=== PATIENT | male | born 1980 | race Caucasian/White ===

== ENCOUNTER 2024-01-19 11:06 | Emergency (ER) | payer OTHER, SELFPAY ==
[2024-01-19 11:08] VITALS: BP 173/98
[2024-01-19 11:46] VITALS: BP 137/85
[2024-01-19 12:00] VITALS: BP 132/82
[2024-01-19 12:04] VITALS: BMI 28.7
--- NOTE | 2024-01-19 12:10 | ED.GENMED ---
History of Present Illness
General
Chief Complaint: Abdominal Pain
Source: patient
Exam Limitations: none
Time Seen by Provider: 01/19/24 12:07
Nursing documentation reviewed up to this point in time: agreed with
Travel History
Have you had any contact with someone who has COVID-19?: No
Do you have any symptoms of coronavirus? Fever > 100 degrees, chills, cough, shortness of breath, sore throat, loss of taste or smell, muscle aches, or headache?: No
History of Present Illness
History of Present Illness:
43-year-old male here from [place] in a drug rehab program. He has been off Suboxone for 3 months. He started with diarrhea 2 months ago when he figured it was from being off the Suboxone however it has been 3 months and his diarrhea is
worsening and has developed mid to right abdominal pain. He states diarrhea is black and in particles, no formed stools. He took Imodium with less diarrhea but no change in the texture of the stool and it remains black. He denies nausea or
vomiting. He does state he feels weak. He denies shortness of breath or chest pain. He does get some abdominal pain before he has the diarrhea.
Past History
Past History
ED Past Medical History: Other (Drug addiction, is in rehab currently)
ED Past Surgical History: Orthopedic and Other (Hernia repair x 3)
Social History
Tobacco: Non-smoker
Drug: Former user
Personal: Single
Living: other (In rehab)
Employment: Not employed
Review of Systems
Review of Systems
Allergies reviewed?: Yes
All Other Systems: ROS reviewed and negative except as documented in HPI and ROS
Constitutional: Denies fever or chills
Respiratory: Denies cough or trouble breathing
Cardiac: Denies chest pain
ABD/GI: Reports abdominal pain, diarrhea, black stools and anorexia (Just does not want to eat because he will have diarrhea); Denies nausea, vomiting or bloody stools
: Reports frequency; Denies dysuria, flank pain, difficulty voiding or urgency
Musculoskeletal: Reports no symptoms
Skin: Reports no symptoms
Neurological: Reports no symptoms
Phy Exam
Physical Exam
Physical Exam:
GENERAL: No acute distress. A&Ox3.
CONSTITUTIONAL: Afebrile.
ENMT: moist mucus membranes, Pharynx nl
RESPIRATORY: Regular respirations, nonlabored, lungs clear.
CARDIOVASCULAR: Regular rate and rhythm, no murmurs, no rubs.
GI: Soft, tender mid to right abdomen, hypoactive BS
Rectal: No stool, clear mucus Hematest neg, no hemorrhoids
MUSCULOSKELETAL: Moves with ease. Well perfused.
SKIN: Warm, dry, pink
PSYCH: Normal mood and affect. Well kept, interactive and appropriate
NEUROLOGIC: Awake, alert and oriented. No focal neurological deficits
Course
Orders/Labs/Results
Orders:
Orders
01/19/24 12:22
CT Abd/Pel (IV only)-DH only Urgent
Comment:
Reason For Exam: abdominal pain, diarrhea
01/19/24 12:24
0.9% Sodium Chloride 1000 ml [Nss] 1,000 ml IV BOLUS
01/19/24 12:43
Type+Screen Urgent
Complete Blood Count/With Diff Urgent
Comprehensive Metabolic Panel Urgent
Lipase Urgent
Urinalysis Reflex To Culture Urgent
Date Specimen was Collected: 01/19/24
Time Specimen was Collected: 12:26
01/19/24 16:31
C DIFF [C difficile Antigen & Toxins] Urgent
ANGÉLICA Source: Feces/Stool
Specimen Description:
Date Specimen was Collected: 01/19/24
Time Specimen was Collected: 16:29
Ova & Parasites Giardia/Crypto AG [Giardia/Cryptosporidium Ag] Urgent
ANGÉLICA Source: Feces/Stool
Specimen Description:
Stool Culture Urgent
ANGÉLICA Source: Feces/Stool
Specimen Description:
Date Specimen was Collected: 01/19/24
Time Specimen was Collected: 16:29
Abnormal Lab Results
01/19/24
12:43
MPV 10.8 H fL
(7.4-10.4)
Lymphocytes % 19.6 L %
(20.5-51.1)
BUN 29 H mg/dl
(9-20)
Glucose 118 H mg/dl
(70-99)
AST 63 H U/L
(17-59)
ALT 114 H U/L
(0-50)
01/19/24 12:43
01/19/24 12:43
Vital Signs
Initial and Last Documented VS:
Initial Vital Signs
Temp Pulse Resp BP Pulse Ox
98.2 F 72 18 173/98 98
01/19/24 11:08 01/19/24 11:08 01/19/24 11:08 01/19/24 11:08 01/19/24 11:08
Last Documented Vital Signs
Temp Pulse Resp BP Pulse Ox
97.5 F 79 19 134/94 97
01/19/24 12:47 01/19/24 16:29 01/19/24 16:29 01/19/24 16:29 01/19/24 16:29
MDM/Problems Addressed
Differential Diagnosis Includes:
Bacterial versus viral enteritis, colitis, diverticulitis
MDM/Problems Addressed:
43-year-old male here from [place] in a drug rehab program. He has been off Suboxone for 3 months. He started with diarrhea 2 months ago when he figured it was from being off the Suboxone however it has been 3 months and his diarrhea is
worsening and has developed mid to right abdominal pain. He states diarrhea is black and in particles, no formed stools. He took Imodium with less diarrhea but no change in the texture of the stool and it remains black. He denies nausea or
vomiting. He does state he feels weak. He denies shortness of breath or chest pain. He does get some abdominal pain before he has the diarrhea.
01/19/2024 1414 PM
CBC, CMP normal
UA normal
Pt had a very dark stool, approx 2 TBS worth, pudding consistency, faintly heme positive, most likely from irritation
Did take Pepto Bismol 2-3 days ago.
Sent for culture, ova and parasites.
01/19/[address] abdomen pelvis with IV only contrast: Radiology report read: IMPRESSION:
No CT evidence for an acute inflammatory process in the abdomen or pelvis.
Case discussed with Dr. Christine who agrees with discharge, Pepto Bismol prn, GI follow up
*Critical Care Note
Total Time (30-74mins, 75-104mins- exclusive of procedures): Not Applicable
ED Attending Note
-
Portions of this chart may have been created with voice recognition software.� Occasional wrong word or��sound alike� substitutions may have occurred due to the inherent limitations of voice recognition software.
Discharge Plan
Departure
Patient Disposition: Home (Routine Discharge)
Date of Disposition: 01/19/24
Time of Disposition: 16:36
Patient with high blood pressure during this ER visit?: No
Condition: Good
Discharge Problem:
Loose stools, Dark stools
Instructions: Diarrhea, Adult ED
Prescriptions:
No Action
fluoxetine [Prozac] 40 mg Capsule
40 mg PO DAILY
trazodone 50 mg Tablet
50 mg PO HSPRN PRN (Reason: sleep)
gabapentin 400 mg Capsule
400 mg PO HS
loperamide 2 mg Tablet
2 mg PO Q4H PRN (Reason: diarrhea)
bismuth subsalicylate [Pepto-Bismol] 262 mg/15 mL Suspension
524 mg PO BIDPRN PRN (Reason: diarrhea)
Visbiome 112.5 billion cell Capsule
1 cap PO DAILY
Referrals:
Tom Mar MD [Active] - Next open appointment
NONE,* [Family Provider] -
Activity Restrictions/Additional Instructions:
As we discussed, there is nothing worrisome in your workup here today.
You may continue Pepto-Bismol.
I sent your stool for cultures, the results should be back in 2 to 3 days.
You may call me Friday between the hours of 3 and 8 PM for the stool culture results to see if they are back yet and ask for Ayanna
Return here immediately for bloody stools, abdominal pain with diarrhea fever, vomiting or feeling sicker in any way,
Call and make an appointment to see the GI doctor
Interventions
Interventions:
*Risk Screen - Suicide Last Done: 01/19/24 11:08
*General Assessment Last Done: 01/19/24 11:08
*Neglect/Abuse Screening Last Done: 01/19/24 11:08
*ED COVID-19 Vaccine History Last Done: 01/19/24 11:08
BD-Gjbyet-Sdrplutcli Assessment Last Done: 01/19/24 12:05
[2024-01-19] MEDS: NSS 1000 IV (12:41)
[2024-01-19 12:56] LABS: Urine Albumin Trace (Neg - Trace); Urine Bilirubin Negative (Negative); Urine Character Clear (Clear); Urine Color Yellow; Urine Glucose Negative (Negative); Urine Ketone Negative (Negative); Urine Leukocyte Negative (Negative); Urine Nitrite Negative (Negative); Urine Occult Blood Negative (Negative); Urine Urobilinogen Negative (Neg - 1+)
[2024-01-19 12:58] LABS: % Basophils 0.4 % (0-2); % Eosinophils 0.4 % (0-6); % Immature Granulocytes 0.4 % (0-0.5); % Lymphocytes 19.6 % (20.5-51.1); % Monocytes 8.1 % (1.7-9.3); % Neutrophils 71.1 % (42.2-75.2); Absolute Lymphocytes 1.5 10^3/uL (1.2-3.4); Absolute Monocytes 0.6 10^3/uL (0.1-0.6); Absolute Neutrophils 5.3 10^3/uL (1.4-6.5); Hematocrit 43.8 % (39.0-52.0); Hemoglobin 15.4 g/dL (13.0-18.0); Mean Corp Hgb Conc. 35.2 g/dL (33.0-37.0); Mean Corpuscular Hgb 29.1 pg (27.0-31.0); Mean Corpuscular Volume 82.6 fL (80.0-94.0); Mean Platelet Volume 10.8 fL (7.4-10.4); Nucleated Red Blood Cells % 0 % (-); Platelet Count 213 10^3/uL (130-400); Red Cell Dist. Width 12.8 % (11.5-14.5); White Blood Cell Count 7.5 10^3/uL (4.8-10.8)
[2024-01-19 13:07] LABS: ALT (SGPT) 114 U/L (0-50); AST (SGOT) 63 U/L (17-59); Albumin 4.7 g/dl (3.5-5.0); Alkaline Phosphatase 69 U/L (38-126); Blood Urea Nitrogen 29 mg/dl (9-20); Calcium 9.4 mg/dl (8.4-10.2); Carbon Dioxide 28 mmol/L (22-30); Chloride 104 mmol/L (98-107); Estimated Creatinine Clearance 105 ml/min; Glucose 118 mg/dl (70-99); Lipase 46 U/L (23-300); Potassium 4.1 mmol/L (3.5-5.1); Sodium 137 mmol/L (135-145); Total Bilirubin 0.5 mg/dl (0.2-1.3); Total Protein 7.7 g/dl (6.3-8.2); eGFR > 60.00
[2024-01-19 16:29] VITALS: BP 134/94
== END 2024-01-19 17:02 | disposition home or self-care (01) ==
LOC: EMR 11:06
PROVIDERS: Registered Nurse; EMERGENCY PHYSICIAN Emergency Medicine
DX: K92.1 Melena (principal); R19.7 Diarrhea, unspecified; R10.9 Unspecified abdominal pain; R53.1 Weakness; F19.20 Other psychoactive substance dependence, uncomplicated; Z88.1 Allergy status to other antibiotic agents
CPT/HCPCS: 99285; 96360; 74177; 80053; 81003; 83690; 85025; 86850; 86900; 86901; 87045; 87046; 87177; 87209; 87324; 87328; 87329; 87427; 87449; Q9967

== ENCOUNTER 2024-03-31 12:40 | Emergency (ER) | payer OTHER, SELFPAY ==
[2024-03-31] VITALS (7 sets, daily range): BP systolic 115–128; BP diastolic 74–84
[2024-03-31 13:04] LABS: % Basophils 0.6 % (0-2); % Eosinophils 1.1 % (0-6); % Immature Granulocytes 0.2 % (0-0.5); % Lymphocytes 23.3 % (20.5-51.1); % Monocytes 9.4 % (1.7-9.3); % Neutrophils 65.4 % (42.2-75.2); Absolute Eosinophils 0.1 10^3/uL (0-0.7); Absolute Lymphocytes 1.5 10^3/uL (1.2-3.4); Absolute Monocytes 0.6 10^3/uL (0.1-0.6); Absolute Neutrophils 4.1 10^3/uL (1.4-6.5); Hemoglobin 14.5 g/dL (13.0-18.0); Mean Corp Hgb Conc. 35.4 g/dL (33.0-37.0); Mean Corpuscular Hgb 29.5 pg (27.0-31.0); Mean Corpuscular Volume 83.3 fL (80.0-94.0); Mean Platelet Volume 10.4 fL (7.4-10.4); Nucleated Red Blood Cells % 0 % (-); Platelet Count 158 10^3/uL (130-400); Red Blood Cell Count 4.92 10^6/uL (4.70-6.10); Red Cell Dist. Width 13.7 % (11.5-14.5); White Blood Cell Count 6.3 10^3/uL (4.8-10.8)
[2024-03-31 13:29] LABS: ALT (SGPT) 162 U/L (0-50); AST (SGOT) 81 U/L (17-59); Albumin 4.6 g/dl (3.5-5.0); Alkaline Phosphatase 60 U/L (38-126); Blood Urea Nitrogen 29 mg/dl (9-20); Calcium 9.5 mg/dl (8.4-10.2); Carbon Dioxide 26 mmol/L (22-30); Chloride 105 mmol/L (98-107); Glucose 107 mg/dl (70-99); Lipase 47 U/L (23-300); Potassium 4.5 mmol/L (3.5-5.1); Sodium 139 mmol/L (135-145); Total Bilirubin 0.5 mg/dl (0.2-1.3); Total Protein 7.3 g/dl (6.3-8.2); eGFR > 60.00
[2024-03-31 13:30] LABS: Urine Albumin Negative (Neg - Trace); Urine Bilirubin Negative (Negative); Urine Character Clear (Clear); Urine Color Yellow; Urine Glucose Negative (Negative); Urine Ketone Negative (Negative); Urine Leukocyte Negative (Negative); Urine Nitrite Negative (Negative); Urine Occult Blood Negative (Negative); Urine Urobilinogen Negative (Neg - 1+); Urine pH 6.5 (5.0-9.0)
--- NOTE | 2024-03-31 15:06 | ED.GENMED ---
History of Present Illness
General
Chief Complaint: Abdominal Pain
Source: patient
Exam Limitations: none
Time Seen by Provider: 03/31/24 14:21
Nursing documentation reviewed up to this point in time: agreed with
Travel History
Have you had any contact with someone who has COVID-19?: No
Do you have any symptoms of coronavirus? Fever > 100 degrees, chills, cough, shortness of breath, sore throat, loss of taste or smell, muscle aches, or headache?: No
History of Present Illness
History of Present Illness:
44-year-old male with a distant history of opioid use who presents to the emergency room for evaluation of abdominal pain and diarrhea. Patient reports that he has been having chronic issues with diarrhea since he discontinued Suboxone 6 months
ago�he says he has had nonbloody loose stools constantly since then. He says that over the past 3 to 4 months he has began having issues with abdominal pains as well�he reports he will get stabbing pains in the upper abdomen towards the left side.
He says that the stabbing pains will usually last for few minutes at a time and he will get them a few times a week. There is no clear triggering factor noted, no relation to food. He says that he has been prescribed dicyclomine in the past for
possible irritable bowel syndrome but that this does not help consistently. He says that over the past 3 days his pain has been more constant and so he came to the emergency to be assessed. He does have an appointment scheduled with
gastroenterology for evaluation of the symptoms but it is not until the end of May this year. Aside from diarrhea and pains he has not had any nausea or vomiting. He does report he has had some poor appetite and about 15 pound weight loss in the
past 6 months unintentionally. He denies any fevers or chills. He denies any urinary symptoms. He has not had any chest pain, shortness of breath. He denies any back or flank pain. He denies any other complaints.
Past History
Past History
ED Past Medical History: Other (Drug addiction, is in rehab currently)
ED Past Surgical History: Orthopedic and Other (Hernia repair x 3)
Social History
Tobacco: Non-smoker
Drug: Former user
Personal: Single
Living: other (In rehab)
Employment: Not employed
Review of Systems
Review of Systems
All Other Systems: ROS reviewed and negative except as documented in HPI and ROS
Constitutional: Reports weight loss and fatigue; Denies fever or chills
EENT: Denies sore throat or runny nose
Respiratory: Denies cough or trouble breathing
Cardiac: Denies chest pain or palpitations
ABD/GI: Reports abdominal pain, diarrhea and anorexia; Denies nausea, vomiting or constipated
: Denies dysuria, frequency, flank pain or bleeding
Musculoskeletal: Denies edema, neck pain or back pain
Neurological: Denies dizzy or headache
Phy Exam
Physical Exam
Physical Exam:
General: Awake, alert, oriented x3; no acute distress
Head: Normocephalic, atraumatic
Eyes: Conjunctiva normal, sclera anicteric
Throat: Airway intact, handling secretions
Neck: Trachea midline, supple without meningismus
Lungs: Clear to auscultation bilaterally, no wheezing, rales, rhonchi
Heart: Regular rate and rhythm, no murmurs, gallops, or rubs
Abd: Normoactive bowel sounds; abdomen is soft, non distended, tender to palpation epigastric region and left upper quadrant, no palpable abdominal masses
Back: No CVA tenderness
Neuro: Cranial nerves grossly intact, speech fluid
Skin: no rash
Extremities: No edema in extremities, equal pulses in all extremities
Scores
Heart Failure Risk
Heart Failure Risk Score: Not Applicable
Heart Score for Chest Pain Patients
STEMI patient?: Not applicable
Withdrawal Assessment of Alcohol
Withdrawal Assessment Completed?: Not applicable
Course
Orders/Labs/Results
Orders:
Orders
03/31/24 12:52
Complete Blood Count/With Diff Urgent
Comprehensive Metabolic Panel Urgent
Lipase Urgent
Urinalysis Reflex To Culture Urgent
Date Specimen was Collected: 03/31/24
Time Specimen was Collected: 12:48
03/31/24 14:44
CT Abd/pelvis W Iv Cont Urgent
Comment:
Reason For Exam: upper abd pain, left side
Abnormal Lab Results
03/31/24
12:52
Monocytes % 9.4 H %
(1.7-9.3)
BUN 29 H mg/dl
(9-20)
Glucose 107 H mg/dl
(70-99)
AST 81 H U/L
(17-59)
ALT 162 H U/L
(0-50)
03/31/24 12:52
03/31/24 12:52
Vital Signs
Initial and Last Documented VS:
Initial Vital Signs
Temp Pulse Resp BP Pulse Ox
37.2 C 77 17 118/79 96
03/31/24 12:46 03/31/24 12:46 03/31/24 12:46 03/31/24 12:46 03/31/24 12:46
Last Documented Vital Signs
Temp Pulse Resp BP Pulse Ox
37.2 C 77 17 121/84 96
03/31/24 12:46 03/31/24 12:46 03/31/24 12:46 03/31/24 14:51 03/31/24 14:51
MDM/Problems Addressed
Differential Diagnosis Includes:
Colitis, enteritis, irritable bowel syndrome, inflammatory bowel disease, gastritis, gastric ulcer/PUD, cholelithiasis, cholecystitis, nephrolithiasis, pyelonephritis
MDM/Problems Addressed:
44-year-old male with history as above presents to the emergency room for evaluation of chronic diarrhea and abdominal pain that seems to be a bit worse over the past 3 days. Vital signs are normal here. Exam as above. Plan to place an IV check
labs including CBC and CMP, urinalysis. Will send for a CT of the abdomen pelvis. Will monitor here and reassess after the above.
*Radiology
Radiology exam reviewed: radiology read reviewed
*Pulse Oximetry
Patient hypoxic: no
*Critical Care Note
Total Time (30-74mins, 75-104mins- exclusive of procedures): Not Applicable
Data Reviewed
Review of Other/Old Records Reveals: Labs and Records
Source: patient and records
ED Attending Note
-
Portions of this chart may have been created with voice recognition software.� Occasional wrong word or��sound alike� substitutions may have occurred due to the inherent limitations of voice recognition software.
Discharge Plan
Departure
Prescriptions:
No Action
fluoxetine [Prozac] 40 mg Capsule
40 mg PO DAILY
trazodone 50 mg Tablet
50 mg PO HSPRN PRN (Reason: sleep)
gabapentin 400 mg Capsule
400 mg PO HS
loperamide 2 mg Tablet
2 mg PO Q4H PRN (Reason: diarrhea)
bismuth subsalicylate [Pepto-Bismol] 262 mg/15 mL Suspension
524 mg PO BIDPRN PRN (Reason: diarrhea)
Visbiome 112.5 billion cell Capsule
1 cap PO DAILY
Interventions
Interventions:
*Risk Screen - Suicide Last Done: 03/31/24 12:47
*General Assessment Last Done: 03/31/24 12:47
*Neglect/Abuse Screening Last Done: 03/31/24 12:47
ED- Fall Risk Assessment Last Done: 03/31/24 14:55
*ED COVID-19 Vaccine History Last Done: 03/31/24 12:47
LP-Bgaqpy-Yhfnwuncyq Assessment Last Done: 03/31/24 14:55
Discharge Date and Time
Print Language: ICELANDIC
== END 2024-03-31 18:29 | disposition home or self-care (01) ==
LOC: EMR 12:40
PROVIDERS: Emergency Medicine; EMERGENCY PHYSICIAN Emergency Medicine
DX: R10.12 Left upper quadrant pain (principal); R19.7 Diarrhea, unspecified; R63.4 Abnormal weight loss; F11.91 Opioid use, unspecified, in remission; Z88.1 Allergy status to other antibiotic agents
CPT/HCPCS: 99285; 74177; 80053; 81003; 83690; 85025; Q9967

== ENCOUNTER 2024-06-15 14:30 | Emergency (ER) | payer SELFPAY ==
[2024-06-15 14:34] VITALS: BP 150/93
[2024-06-15 15:00] LABS: % Basophils 0.3 % (0-2); % Eosinophils 0.3 % (0-6); % Immature Granulocytes 0.1 % (0-0.5); % Lymphocytes 17.4 % (20.5-51.1); % Monocytes 6.6 % (1.7-9.3); % Neutrophils 75.3 % (42.2-75.2); Absolute Lymphocytes 1.3 10^3/uL (1.2-3.4); Absolute Monocytes 0.5 10^3/uL (0.1-0.6); Absolute Neutrophils 5.6 10^3/uL (1.4-6.5); Hematocrit 43.8 % (39.0-52.0); Hemoglobin 16.1 g/dL (13.0-18.0); Mean Corp Hgb Conc. 36.8 g/dL (33.0-37.0); Mean Corpuscular Hgb 30.8 pg (27.0-31.0); Mean Corpuscular Volume 83.7 fL (80.0-94.0); Mean Platelet Volume 10.8 fL (7.4-10.4); Nucleated Red Blood Cells % 0 % (-); Platelet Count 183 10^3/uL (130-400); Red Blood Cell Count 5.23 10^6/uL (4.70-6.10); Red Cell Dist. Width 12.8 % (11.5-14.5); White Blood Cell Count 7.5 10^3/uL (4.8-10.8)
[2024-06-15 15:09] LABS: ALT (SGPT) 135 U/L (0-50); AST (SGOT) 71 U/L (17-59); Albumin 4.9 g/dl (3.5-5.0); Alkaline Phosphatase 62 U/L (38-126); Blood Urea Nitrogen 31 mg/dl (9-20); Calcium 9.8 mg/dl (8.4-10.2); Carbon Dioxide 24 mmol/L (22-30); Chloride 102 mmol/L (98-107); Glucose 100 mg/dl (70-99); Potassium 4.3 mmol/L (3.5-5.1); Sodium 136 mmol/L (135-145); Total Bilirubin 0.8 mg/dl (0.2-1.3); Total Protein 7.4 g/dl (6.3-8.2); eGFR > 60.00
--- NOTE | 2024-06-15 16:03 | ED.GENMED ---
History of Present Illness
General
Chief Complaint: Dizziness
Source: patient
Exam Limitations: none
Time Seen by Provider: 06/15/24 15:58
Nursing documentation reviewed up to this point in time: agreed with
History of Present Illness
History of Present Illness:
44-year-old male with history of GERD, IBS, anxiety/depression states him he has been had not room spinning dizziness, rather feels 'a little off balance' when he walks. for the past 3 to 4 days. Denies any head injury. He states he has also had
blurry vision in both eyes (he does admit lately he has trouble reading due to blurry vision). He denies nausea or vomiting. He denies headache. He had a normal bowel movement this morning, he states he is urinating more frequently like every
hour during the night for the past 2 weeks. Denies trouble walking
He states he has GI problems, he thinks he has IBS and has frequent diarrhea that is controlled if he takes Imodium daily. He states he has an appoint with a GI doctor within the next month.
Past History
Past History
ED Past Medical History: GERD, Psychiatric (Anxiety/depression) and Other (Drug addiction, is in rehab currently)
ED Past Surgical History: Orthopedic and Other (Hernia repair x 3)
Social History
Tobacco: Non-smoker
Drug: Former user
Personal: Single
Living: with roommate (In rehab)
Employment: Employed ([employer])
Review of Systems
Review of Systems
Allergies reviewed?: Yes
All Other Systems: ROS reviewed and negative except as documented in HPI and ROS
Constitutional: Denies fever
Respiratory: Denies trouble breathing
Cardiac: Denies chest pain
ABD/GI: Reports diarrhea (chronic intermittent, uses Imodium. Normal BM today.); Denies abdominal pain, nausea, vomiting, bloody stools, black stools or anorexia
: Reports frequency (has been going sometimes every hour during night past 2 weeks. ); Denies dysuria, flank pain, difficulty voiding, urgency, bleeding or discharge
Musculoskeletal: Reports no symptoms
Skin: Reports no symptoms
Neurological: Denies dizzy, headache, weakness or numbness
Phy Exam
Physical Exam
Physical Exam:
GENERAL: No acute distress. A&Ox3.
CONSTITUTIONAL: Afebrile.
EYES: PERRL, conjunctivae normal, no nystagmus
Neck: Supple
ENMT: moist mucus membranes, Pharynx nl
RESPIRATORY: Regular respirations, nonlabored, lungs clear.
CARDIOVASCULAR: Regular rate and rhythm, no murmurs, no rubs.
GI: Soft, nontender, normal BS
MUSCULOSKELETAL: Moves with ease. Well perfused.
SKIN: Warm, dry, pink
PSYCH: Depressed mood and affect. Well kept, interactive and appropriate
NEUROLOGIC: Awake, alert and oriented. No focal neurological deficits. CN 2-12 intact. Finger to nose intact, ambulates well with steady gait.
Course
Orders/Labs/Results
Orders:
Orders
06/15/24 14:38
CT Head W/o Iv Contrast Urgent
Comment:
Reason For Exam: dizziness with blurred vison x1 week
06/15/24 14:44
Complete Blood Count/With Diff Urgent
Comprehensive Metabolic Panel Urgent
06/15/24 16:04
0.9% Sodium Chloride 1000 ml [Nss] 1,000 ml IV BOLUS
06/15/24 16:05
Visual Acuity- Treatment ONCE
06/15/24 17:12
Urinalysis Reflex To Culture Urgent
Date Specimen was Collected: 06/15/24
Time Specimen was Collected: 17:04
Urine Drug Abuse Screen Urgent
Date Specimen was Collected: 06/15/24
Time Specimen was Collected: 17:04
Abnormal Lab Results
06/15/24
14:44
MPV 10.8 H fL
(7.4-10.4)
Neutrophils % 75.3 H %
(42.2-75.2)
Lymphocytes % 17.4 L %
(20.5-51.1)
BUN 31 H mg/dl
(9-20)
Glucose 100 H mg/dl
(70-99)
AST 71 H U/L
(17-59)
ALT 135 H U/L
(0-50)
06/15/24 14:44
06/15/24 14:44
Vital Signs
Initial and Last Documented VS:
Initial Vital Signs
Temp Pulse Resp BP Pulse Ox
98.2 F 82 16 150/93 98
06/15/24 14:34 06/15/24 14:34 06/15/24 14:34 06/15/24 14:34 06/15/24 14:34
Last Documented Vital Signs
Temp Pulse Resp BP Pulse Ox
98.2 F 60 18 130/80 99
06/15/24 14:34 06/15/24 18:41 06/15/24 18:41 06/15/24 18:41 06/15/24 18:41
MDM/Problems Addressed
Differential Diagnosis Includes:
Dehydration, UTI
MDM/Problems Addressed:
44-year-old male with history of GERD, IBS, anxiety/depression states him he has been dizzy for the past 3 to 4 days. Denies any head injury. He states he has also had blurry vision in both eyes (he does admit lately he has trouble reading due to
blurry vision). He denies nausea or vomiting. He denies headache. He had a normal bowel movement this morning, he states he is urinating more frequently like every hour during the night for the past 2 weeks. Denies trouble walking, does feel a
little off balance when he walks.
He states he has GI problems, he thinks he has IBS and has frequent diarrhea that is controlled if he takes Imodium daily. He states he has an appoint with a GI doctor within the next month.
Head CT shows no acute abnormality
CBC normal
CMP: BUN 31 mild elevation of AST and ALT
IVFs ordered for dehydration,
U/A for frequent urination past 2 weeks. UDS added as pt is on work release, previous drug use
Recommended eye doctor exam for blurred vision
No neuro deficits do not suspect central etiology of symptoms.
5:30 PM:
UA negative
UDS negative
6:15 p.m.
Nothing worrisome in today's w/u.
Pt feels 'a little' better after IVS. Has no PCP.
Referred to ophthalmology to have eyes/vision checked, suspect age related presbyopia as he states he has had trouble reading due to blurry vision for a while
Final diagnosis: mild dehydration
*Critical Care Note
Total Time (30-74mins, 75-104mins- exclusive of procedures): Not Applicable
ED Attending Note
-
Portions of this chart may have been created with voice recognition software.� Occasional wrong word or��sound alike� substitutions may have occurred due to the inherent limitations of voice recognition software.
Discharge Plan
Departure
Patient Disposition: Home (Routine Discharge)
Date of Disposition: 06/15/24
Time of Disposition: 18:26
Patient with high blood pressure during this ER visit?: No
Condition: Good
Discharge Problem:
Dehydration, mild
Instructions: Dehydration, Adult ED
Prescriptions:
No Action
fluoxetine [Prozac] 40 mg Capsule
40 mg PO DAILY
trazodone 50 mg Tablet
50 mg PO HSPRN PRN (Reason: sleep)
gabapentin 400 mg Capsule
400 mg PO HS
loperamide 2 mg Tablet
2 mg PO Q4H PRN (Reason: diarrhea)
bismuth subsalicylate [Pepto-Bismol] 262 mg/15 mL Suspension
524 mg PO BIDPRN PRN (Reason: diarrhea)
Visbiome 112.5 billion cell Capsule
1 cap PO DAILY
Referrals:
Bob Dixon MD [Active] - Next open appointment
NONE,* [Family Provider] -
Activity Restrictions/Additional Instructions:
As we discussed, your workup here today shows nothing worrisome, the only thing is that you are mildly dehydrated to be sure to drink plenty of water/fluids.
See the eye doctor as your blurry vision may be correct with glasses.
I sent your name to our person that arranges for primary doctors so you will be getting a call from her.
OR you may call [facility] and see if you qualify
Interventions
Interventions:
*Risk Screen - Suicide Last Done: 06/15/24 17:23
*General Assessment Last Done: 06/15/24 17:23
*Neglect/Abuse Screening Last Done: 06/15/24 17:23
ED- Fall Risk Assessment Last Done: 06/15/24 14:34
*ED COVID-19 Vaccine History Last Done: 06/15/24 17:23
*Nursing Disposition Last Done: 06/15/24 18:49
ED- Neurological Assessment Last Done: 06/15/24 17:23
ED- Cardiac Assessment Last Done: 06/15/24 17:23
ED Swallowing Screen Last Done: 06/15/24 17:24
Discharge Date and Time
Discharge Date/Time: 06/15/24 18:49
Print Language: AMHARIC
[2024-06-15] MEDS: NSS 1000 IV (17:08)
[2024-06-15 17:19] LABS: Urine Albumin Negative (Neg - Trace); Urine Bilirubin Negative (Negative); Urine Character Clear (Clear); Urine Color Yellow; Urine Glucose Negative (Negative); Urine Ketone Negative (Negative); Urine Leukocyte Negative (Negative); Urine Nitrite Negative (Negative); Urine Occult Blood Negative (Negative); Urine Urobilinogen Negative (Neg - 1+)
[2024-06-15 17:58] LABS: Amphetamines Negative (Negative); Barbiturates Negative (Negative); Benzodiazepines Negative (Negative); Buprenorphine Negative (Negative); Cocaine Negative (Negative); Marijuana Negative (Negative); Methadone Negative (Negative); Methamphetamines Negative (Negative); Opiates Negative (Negative); Phencyclidine Negative (Negative); Tricyclic Antidepressants Negative (Negative)
[2024-06-15 18:41] VITALS: BP 130/80
== END 2024-06-15 18:49 | disposition home or self-care (01) ==
LOC: EMR 14:30
PROVIDERS: Emergency Medicine; Registered Nurse; EMERGENCY PHYSICIAN Student in an Organized Health Care Education/Training Program
DX: E86.0 Dehydration (principal); K21.9 Gastro-esophageal reflux disease without esophagitis; K58.9 Irritable bowel syndrome, unspecified; F41.8 Other specified anxiety disorders
CPT/HCPCS: 99284; 96360; 70450; 80053; 80306; 81003; 85025